=== PATIENT | female | born 1940 | race Caucasian/White ===

== ENCOUNTER 2019-01-13 14:37 | Outpatient (CLI) | payer MEDICARE ==
[2019-01-13 17:40] LABS: #Basophils 0.1 thou/uL (0.0-0.2); #Eosinphils 0.1 thou/uL (0.0-0.7); #Lymphocytes 2.9 thou/uL (1.20-3.40); #Monocytes 0.4 thou/uL (0.11-0.59); #Neutrophils 4.7 thou/uL (1.40-6.50); %Basophils 1.1 % (0.0-1.0); %Eosinophils 1.5 % (0.0-10.0); %Lymphocytes 35.3 % (21.0-51.0); %Monocytes 5.2 % (0.0-10.0); %Neutrophils 56.9 % (42.0-75.0); Hemoglobin 13.8 g/dL (12.0-16.0); Mean Corpuscular HGB CONC 31.5 g/dL (32.0-36.0); Mean Corpuscular Hemoglobin 29.7 pg (27.0-31.0); Mean Corpuscular Volume 94.2 fL (78.0-98.0); Mean Platelet Volume 8.9 fL (7.4-10.4); Platelet Count 170 thou/uL (130-400); RBC Distribution Width 13.1 % (11.5-14.5); Red Blood Cell (RBC) Count 4.65 mill/uL (4.20-5.40); White Blood Cell (WBC) Count 8.2 thou/uL (4.8-10.8)
[2019-01-13 18:04] LABS: ALT (SGPT) 15 U/L (8-55); AST (SGOT) 19 U/L (5-34); Albumin 4.1 g/dL (3.4-4.8); Alkaline Phosphatase 56 U/L (40-150); Anion Gap 12 mmol/L (10-20); BUN (Urea Nitrogen) 23 mg/dL (9.8-20.1); Bilirubin, Total 0.4 mg/dL (0.2-1.2); Calc. Creatinine Clearance 0 mL/min (70-130); Calcium 9.9 mg/dL (7.8-10.44); Carbon Dioxide 28 mmol/L (23-31); Chloride 102 mmol/L (98-107); Estimated GFR-MDRD 54; Globulin 2.7 g/dL (2.4-3.5); Glucose 87 mg/dL (83-110); Potassium 4.2 mmol/L (3.5-5.1); Protein, Total 6.8 g/dL (6.0-8.3); Sodium 138 mmol/L (136-145)
== END 2019-01-13 14:38 | disposition home or self-care (01) ==
LOC: LABBT 14:37
PROVIDERS: ATTEND Internal Medicine Cardiovascular Disease
DX: Z01.812 Encounter for preprocedural laboratory examination (principal); R94.39 Abnormal result of other cardiovascular function study
CPT/HCPCS: 80053; 85025

== ENCOUNTER 2019-01-15 05:48 | Day surgery (SDC) | payer MEDICARE ==
[2019-01-13 15:11] VITALS: BMI 31.3
[2019-01-15] MEDS ORDERED: Heparin 10,000 UNITS/1 ML VIAL ONE (06:26)
[2019-01-15] MEDS ORDERED: Lidocaine 1% (PF) 30 ML VIAL ONE (06:26)
[2019-01-15] MEDS ORDERED: Midazolam HCl 2 mg/2 ml Vial ONE (07:07)
[2019-01-15] MEDS ORDERED: Fentanyl 100 MCG/2 ML VIAL ONE (07:07)
[2019-01-15] MEDS ORDERED: Bivalirudin 250 MG VIAL ONE (07:26)
[2019-01-15] MEDS ORDERED: Iopamidol 370 76% 50 ML VIAL FS ONE (15:46)
[2019-01-15] MEDS ORDERED: Iopamidol 370 76% 100 ML VIAL ONE (15:46)
== END 2019-01-15 17:22 | disposition home or self-care (01) ==
LOC: CCL 05:48
PROVIDERS: ATTEND Internal Medicine Cardiovascular Disease
PROC: 4A023N7 Measurement of Cardiac Sampling and Pressure, Left Heart, Percutaneous Approach (ICD-10-PCS; principal; 2019-01-15)
PROC: B2001ZZ Plain Radiography of Single Coronary Artery using Low Osmolar Contrast (ICD-10-PCS; 2019-01-15)
DX: I25.10 Atherosclerotic heart disease of native coronary artery without angina pectoris (principal); I10 Essential (primary) hypertension; E78.00 Pure hypercholesterolemia, unspecified; E78.5 Hyperlipidemia, unspecified; E66.9 Obesity, unspecified; Z68.31 Body mass index [BMI] 31.0-31.9, adult; Z79.51 Long term (current) use of inhaled steroids; Z79.899 Other long term (current) drug therapy
CPT/HCPCS: 93458; 99152; 99153; C1769; C1887; J0153; J0583; J1644; J2001; J2250; J3010

== ENCOUNTER 2019-01-26 22:14 | Inpatient (IN) | payer MEDICARE ==
[~2019-01-26 22:14] MED LIST: ISOVUE-370 76%-LOCM 1 ML ONE
[2019-01-26 22:52] LABS: #Basophils 0.1 thou/uL (0.0-0.2); #Eosinphils 0.2 thou/uL (0.0-0.7); #Lymphocytes 3.3 thou/uL (1.20-3.40); #Monocytes 0.7 thou/uL (0.11-0.59); #Neutrophils 5.2 thou/uL (1.40-6.50); %Basophils 1.4 % (0.0-1.0); %Eosinophils 2.5 % (0.0-10.0); %Lymphocytes 34.3 % (21.0-51.0); %Monocytes 7.3 % (0.0-10.0); %Neutrophils 54.6 % (42.0-75.0); Mean Corpuscular HGB CONC 31.8 g/dL (32.0-36.0); Mean Corpuscular Hemoglobin 29.9 pg (27.0-31.0); Platelet Count 202 thou/uL (130-400); RBC Distribution Width 13.2 % (11.5-14.5); Red Blood Cell (RBC) Count 4.34 mill/uL (4.20-5.40); White Blood Cell (WBC) Count 9.6 thou/uL (4.8-10.8)
[2019-01-26 22:58] LABS: INR-International Normal Ratio 1.5; PTT 31.5 SEC (22.9-36.1); Prothrombin Time 17.8 SEC (12.0-14.7)
[2019-01-26 23:17] LABS: ALT (SGPT) 13 U/L (8-55); AST (SGOT) 17 U/L (5-34); Albumin 4.2 g/dL (3.4-4.8); Alkaline Phosphatase 57 U/L (40-150); Anion Gap 13 mmol/L (10-20); BUN (Urea Nitrogen) 33 mg/dL (9.8-20.1); Bilirubin, Total 0.5 mg/dL (0.2-1.2); Calc. Creatinine Clearance 0 mL/min (70-130); Calcium 10.2 mg/dL (7.8-10.44); Carbon Dioxide 29 mmol/L (23-31); Chloride 99 mmol/L (98-107); Estimated GFR-MDRD 36; Globulin 2.3 g/dL (2.4-3.5); Glucose 105 mg/dL (83-110); Potassium 4.4 mmol/L (3.5-5.1); Protein, Total 6.5 g/dL (6.0-8.3); Sodium 137 mmol/L (136-145)
--- NOTE | 2019-01-26 23:36 | CT ---
CTA chest with contrast: Multiple axial tomograms obtained through the chest following a pulmonary angiogram protocol with mul tiplanar reconstruction and 3-D postprocessing. INDICATIONS: Dyspnea and chest pain. Assess for pulmonary embolus. COMPARISON: None FINDINGS: There are pulmonary emboli identified in right lower lobe pulmonary arteries. Small emboli are also s een in left lower lobe pulmonary arteries. Thoracic aorta is unremarkable. No evidence of dissection. Mediastinum appears unremarkable. No adenopathy. Patchy atelectasis and/or infiltrate in the posterior left lung base. Lung moreira otherwise clear. There bilateral renal cystic lesions. Large cyst superior right kidney measures 6.0 cm. Kidneys are i ncompletely evaluated. Soft tissues of the thorax appear unremarkable. Osseous structures of the thorax appear unremarkable. IMPRESSION: Bilateral lower lobe pulmonary emboli. Findings relayed to Edie Molina
[2019-01-27 02:06] LABS: Troponin I Less than 0.010 ng/mL (< 0.028)
[2019-01-27] MEDS ORDERED: Acetaminophen 325 MG TAB PO PRN (03:05)
[2019-01-27] MEDS ORDERED: Ondansetron PF 4 MG/2 ML Vial IVP PRN (03:05)
[2019-01-27] MEDS ORDERED: Ondansetron ODT 4 MG TAB SL PRN (03:05)
[2019-01-27 03:37] VITALS: BMI 31.8
[2019-01-27 05:40] LABS: Troponin I Less than 0.010 ng/mL (< 0.028)
[2019-01-27] MEDS ORDERED: Apixaban 5 MG TAB PO SCH (09:00)
[2019-01-27] MEDS: Enoxaparin Sodium 100 MG/ML SYRINGE SC SCH ×2 (09:35→21:08)
[2019-01-27] MEDS ORDERED: Lisinopril/Hydrochlorothiazide 10 mg/12.5 mg Tablet PO SCH (11:45)
[2019-01-27 12:33] LABS: Anion Gap 13 mmol/L (10-20); BUN (Urea Nitrogen) 26 mg/dL (9.8-20.1); Calc. Creatinine Clearance 65 mL/min (70-130); Calcium 9.9 mg/dL (7.8-10.44); Carbon Dioxide 27 mmol/L (23-31); Chloride 101 mmol/L (98-107); Estimated GFR-MDRD 52; Glucose 97 mg/dL (83-110); Potassium 3.9 mmol/L (3.5-5.1); Sodium 137 mmol/L (136-145)
[2019-01-27] MEDS ORDERED: Atorvastatin Calcium 40 MG TAB PO SCH (21:00)
[2019-01-27] MEDS ORDERED: Gabapentin 300 MG CAP PO SCH (21:00)
--- NOTE | 2019-01-27 21:32 | HP ---
CHIEF COMPLAINT: Shortness of breath. HISTORY OF PRESENT ILLNESS: The patient is a 78-year-old female who initially presented to the hospital with complaints of shortness of breath and some chest pain. The patient stated that around January 15, she started having chest pain at which time she did have a stress test, which was abnormal. The patient underwent a cardiac catheterization with no intervention. The patient then was discharged home, however, she started having right groin pain and at this time, a right lower extremity Doppler was done, which indicated a significant amount of DVT. The patient was started on Eliquis that day. She is still currently supposed to be on 10 mg twice a day, however, started having some chest pain and worsening dull pain to her chest and a shortness of breath, which made her come into the hospital. The patient did have a CTA, which indicated bilateral lower segments of her lung pulmonary embolism. PAST MEDICAL HISTORY: She has a history of hypertension, sleep apnea. She also has a history of obesity. PAST SURGICAL HISTORY: She has had a thyroidectomy for goiter and hysterectomy. FAMILY HISTORY: No significant history of heart disease. ALLERGIES: SHE HAS NO KNOWN ALLERGIES. MEDICATIONS: She is on: 1. Levothyroxine. 2. Atorvastatin 20 mg daily. 3. She is on aspirin. 4. She is on hydrochlorothiazide. 5. She is on lisinopril. 6. She is on metoprolol. REVIEW OF SYSTEMS: All negative for the ones mentioned above in the HPI. PHYSICAL EXAMINATION: VITAL SIGNS: As of the following; temperature of 97.7, 69, 20, 92% on room air, 136/77. GENERAL: She is awake, alert, and oriented x3. Does not appear in distress. HEENT: Normocephalic, atraumatic. No lymphadenopathy noted. Pupils are equal reactive to light. CV: S1 and S2 present. No murmurs, rubs, or gallops. LUNGS: Clear to auscultation. No rhonchi or wheezes noted. ABDOMEN: Soft and nontender. Bowel sounds are present x2. EXTREMITIES: No edema. Pedal pulses present x2. ABDOMEN: Her right groin, she does have a hematoma. There was no erythema noted. NEUROVASCULAR: Has no focal deficits noted. SKIN: Besides the hematoma on the right groin, she has no other skin breakdown. LABORATORY RESULTS: As of the following; WBCs of 9.6, hemoglobin 13.0, hematocrit 40.8, platelets of 202. Coagulation: INR 1.5. Chemistry: Sodium 137, potassium of 4.4, BUN of 33, creatinine 1.42. Troponin x3 are negative. BNP is 15. As I mentioned, she did have a CTA, which indicated bilateral lower lobe pulmonary embolism. ASSESSMENT AND PLAN: The patient is a very pleasant 78-year-old female who presents to the hospital with complaints of worsening shortness of breath. 1. Acute pulmonary embolism. It is a possibility that the patient probably had a pulmonary embolism before versus embolism from her DVT to her lungs. I do not believe she failed Eliquis therapy since she is on a therapeutic dose of 10 mg twice a day and she is on day #5 I believe. I believe that this is probably just translocation of her blood clots or emboli from her lower extremity to her lungs. Currently, she is on Lovenox. I did discuss this with a straightedge man who recommended to continue the patient on Eliquis from tomorrow. 2. I will also order an echocardiogram even though her troponins x3 were negative. I will get records from Dr. Yuan's office for her lower extremity venous ultrasound to further evaluate it. 3. Hypertension. We will continue home medications. 4. Hypothyroidism. We will continue her home medications. 5. Deep venous thrombosis prophylaxis. The patient is already on therapeutic dose of Lovenox. Job ID: [id number]
--- NOTE | 2019-01-27 22:42 | CON ---
DATE OF CONSULTATION: REASON FOR CONSULT: DVT and PE. HISTORY OF PRESENT ILLNESS: Ms. Phillips is a pleasant 78-year-old female who underwent an outpatient heart catheterization on July 18. She had a large hematoma in her right groin after the procedure. She was discharged home and continued to have burning in that area. She was seen by Dr. Yuan on January 22. Ultrasound showed a right femoral common vein DVT. She was started on Eliquis 10 mg b.i.d. that day and has been taking it over the last 5 days. She states she had intermittent chest pain since the heart catheterization, which progressively worsened and she had some shortness of breath, so she presented to the emergency room yesterday for evaluation. She underwent a CT angio, which showed small bilateral pulmonary emboli. She was started on therapeutic Lovenox and admitted for further evaluation. The patient has no history of blood clots. No family history of blood clotting. No history of smoking. She does use an estradiol ring. No chest pain or shortness of breath at this time. PAST MEDICAL HISTORY: 1. Hypothyroidism. 2. Hypertension. 3. Venous insufficiency. 4. Spinal stenosis. 5. High cholesterol. PAST SURGICAL HISTORY: 1. Corneal implants. 2. Tonsillectomy. 3. Total hysterectomy. 4. Thyroidectomy. ALLERGIES: NO KNOWN DRUG ALLERGIES. HOME MEDICATIONS: 1. Eliquis 10 mg b.i.d. 2. Lipitor 40 mg daily. 3. B12 daily. 4. Estradiol 2 mg vaginal ring every 90 days. 5. Flonase. 6. Gabapentin. 7. Synthroid. 8. Lisinopril/hydrochlorothiazide. 9. Metoprolol. 10. CoQ10. FAMILY HISTORY: Brother had prostate cancer. No history of clotting. SOCIAL HISTORY: , has 2 children. Lives with her . No alcohol, tobacco, or illicit drug use. REVIEW OF SYSTEMS: A 10-point review of systems is negative except for noted in HPI. PHYSICAL EXAMINATION: VITAL SIGNS: Temperature 97.7, pulse 69, respiratory rate 20, blood pressure is 136/77, 93% on room air. GENERAL: Well-developed, well-nourished female, in no acute distress. HEENT: Normocephalic, atraumatic. Pupils are equal and reactive to light. NECK: Supple. CV: Regular rate and rhythm. LUNGS: Clear. ABDOMEN: Soft and nontender. Bowel sounds are positive. EXTREMITIES: No clubbing, cyanosis, or edema. SKIN: No rash. HEMATOLOGICAL: She has multiple resolving bruises in her right groin and right upper thigh. NEUROLOGICAL: Nonfocal. PSYCHIATRIC: She is alert, oriented and appropriate. PERTINENT LABS AND X-RAYS: Current WBCs are 9.6, hemoglobin 13.0, hematocrit 40.8, platelet count 202,000, 54% neutrophils, 34% lymphocytes. PT is 17.8, INR is 1.5, and PTT is 31.5. Sodium is 137, potassium 3.9, chloride 101, CO2 is 27, BUN is 26, creatinine 1.02, calcium 9.9, bilirubin is 0.5, AST 17, ALT is 13, alkaline phosphatase is 59. Troponin is negative. Serum total protein 6.5, albumin 4.2, globulin 2.3. Radiology per HPI. ASSESSMENT: Deep venous thrombosis and pulmonary embolism, status post cardiac catheterization. DISCUSSION: The patient has only taken Eliquis for 5 days prior to this admission. It is most likely that her pulmonary embolism happened at the time of catheterization or shortly there after. She states she has had intermittent chest pain since that time. She has received 3 doses of Lovenox. I would resume Eliquis in the morning as this is not a failure, simply not long enough time frame. I would continue the 10 mg b.i.d. to complete her a total of 1 week, then go to her 5 mg b.i.d. as prescribed. We discussed that she will need minimal 3 months of anticoagulation and possible 6 months. This can be managed by Dr. Yuan or PCP. We would recommend removing her estradiol ring as it certainly can increase her risk for blood clots in the future. Case has been discussed with Dr. Shook, Dr. Vizcaino and Dr. Villagomez. Thank you for the consult. We will follow along. Job ID: [id number]
[2019-01-28] MEDS ORDERED: Acetaminophen 325 MG TAB PO PRN (02:28)
[2019-01-28] MEDS ORDERED: Levothyroxine Sodium 25 MCG TAB PO SCH (06:00)
[2019-01-28] MEDS ORDERED: Levothyroxine Sodium 112 MCG TAB PO SCH (06:00)
[2019-01-28] MEDS: Enoxaparin Sodium 100 MG/ML SYRINGE SC SCH (08:00)
[2019-01-28] MEDS ORDERED: Lisinopril/Hydrochlorothiazide 10 mg/12.5 mg Tablet PO SCH (09:00)
[2019-01-28] MEDS ORDERED: Polyethylene Glycol 3350 17 GM Packet PO SCH (09:00)
[2019-01-28 15:33] VITALS: TEMP 97.9
[2019-01-28 15:35] VITALS: BP 139/75
--- NOTE | 2019-01-29 06:07 | DIS ---
DATE OF ADMISSION: 01/27/2019 DATE OF DISCHARGE: 01/28/2019 DISCHARGE DIAGNOSES: As of the following; 1. Bilateral pulmonary embolisms. 2. New onset lower extremity deep venous thrombosis. 3. Hypertension. 4. Hypothyroidism. HOSPITAL COURSE: The patient is a very pleasant 78-year-old female, who was recently diagnosed with DVT on her right groin after cardiac cath and was put on Eliquis. She came in with worsening shortness of breath, was found to be little bit hypoxic. At this time, an echocardiogram was ordered. Her troponins x3 were negative. She was seen by Hematology for possible concerns of failed Eliquis therapy, however, that was not the case. The patient was on appropriate therapy, 10 mg twice a day and was taking that for a total of seven days, which would end on 01/30. She was initially put on Lovenox. Her symptoms continued to improve. She was discharged home back with Eliquis 10 mg twice a day till Saturday and then she will go on 5 mg twice a day. It was a question that if the patient possibly had a PE before versus had some emboli from her right DVT going up to her lung. The patient did have a cardiac cath due to abnormal stress test, and heart catheterization did not indicate any severe narrowing and therefore, no intervention was done. The patient felt well. She walked around without any shortness of breath. She will be discharged to home. She will follow up with her primary care and I have instructed her on how to use her Eliquis. I have also instructed her on the side effects of Eliquis. MEDICATIONS: Her home medications will be, 1. Eliquis 10 mg twice a day until Saturday. After that, she is going to be on 5 mg twice a day. 2. Gabapentin 300 mg at bedtime. I have advised her not to take any kind of Aleve. 3. She is going to be on Synthroid 137 mcg daily. 4. Metoprolol 25 mg daily. 5. Lisinopril-hydrochlorothiazide 1 p.o. daily. 6. Atorvastatin 40 mg at bedtime. 7. She is on estradiol ring. PHYSICAL EXAMINATION: VITAL SIGNS: As of the following; temperature of 97.9, 64, 20, 94% on room air, 139/75. GENERAL: She is awake, alert, and oriented x3. Does not appear in any distress. CV: S1, S2 present. No murmurs, rubs, or gallops. ABDOMEN: Soft and nontender. Bowel sounds are present x2. EXTREMITIES: No edema. Pedal pulses are present x2. Again, she will be discharged to home. Follow up with primary care. Job ID: [id number]
== END 2019-01-28 17:24 | disposition home or self-care (01) | DRG 176 ==
LOC: ERS 22:14 → OBSVTOIN 01-27 01:31 → 2SE 01-27 01:31
PROVIDERS: ADMIT Hospitalist; ATTEND Hospitalist
DX: I26.99 Other pulmonary embolism without acute cor pulmonale (principal); I82.411 Acute embolism and thrombosis of right femoral vein; G47.33 Obstructive sleep apnea (adult) (pediatric); I10 Essential (primary) hypertension; E66.9 Obesity, unspecified; E78.00 Pure hypercholesterolemia, unspecified; Z90.710 Acquired absence of both cervix and uterus; Z79.899 Other long term (current) drug therapy; Z79.01 Long term (current) use of anticoagulants; Z68.31 Body mass index [BMI] 31.0-31.9, adult
CPT/HCPCS: 36415; 71275; 80048; 80053; 83880; 84484; 85025; 85610; 85730; 93005; 93306; 94760; J1650; Q9966

== ENCOUNTER 2019-05-25 12:20 | Emergency (ER) | payer MEDICARE ==
[2019-05-25 12:37] LABS: Bilirubin Negative (Negative); Blood, Urine Large (Negative); Clarity Cloudy (Clear); Glucose, Urine (Dipstick) Negative (Negative); Nitrite Negative (Negative); Protein, Urine (Dipstick) 100 mg/dL (Neg-Trace); Urobilinogen 0.2 mg/dL (Less than 2)
[2019-05-25 12:39] LABS: Leukocyte Unable to Interpret (Negative)
[2019-05-25 12:44] LABS: Bacteria/HPF Rare-Few HPF (None Seen); Oval Fat Bodies/HPF Rare HPF (None Seen); RBC/HPF Greater than 50 HPF (0-3); Squamous Epithelial 0-3 HPF (0-3); WBC/HPF 21-50 HPF (0-3)
[2019-05-25 12:45] LABS: Renal Epithelial 0-3 HPF (None Seen)
[2019-05-25 13:01] LABS: #Basophils 0.1 thou/uL (0.0-0.2); #Eosinphils 0.2 thou/uL (0.0-0.7); #Lymphocytes 2.2 thou/uL (1.20-3.40); #Monocytes 0.6 thou/uL (0.11-0.59); #Neutrophils 10.4 thou/uL (1.40-6.50); %Basophils 0.8 % (0.0-1.0); %Eosinophils 1.2 % (0.0-10.0); %Lymphocytes 16.3 % (21.0-51.0); %Monocytes 4.7 % (0.0-10.0); %Neutrophils 76.9 % (42.0-75.0); Hemoglobin 12.8 g/dL (12.0-16.0); Mean Corpuscular HGB CONC 31.6 g/dL (32.0-36.0); Mean Corpuscular Hemoglobin 30.2 pg (27.0-31.0); Mean Corpuscular Volume 95.7 fL (78.0-98.0); Mean Platelet Volume 8.2 fL (7.4-10.4); Platelet Count 176 thou/uL (130-400); RBC Distribution Width 13.8 % (11.5-14.5); Red Blood Cell (RBC) Count 4.23 mill/uL (4.20-5.40); White Blood Cell (WBC) Count 13.6 thou/uL (4.8-10.8)
[2019-05-25 13:13] LABS: ALT (SGPT) 22 U/L (8-55); AST (SGOT) 21 U/L (5-34); Albumin 4.3 g/dL (3.4-4.8); Alkaline Phosphatase 58 U/L (40-110); Anion Gap 16 mmol/L (10-20); BUN (Urea Nitrogen) 23 mg/dL (9.8-20.1); Bilirubin, Total 0.7 mg/dL (0.2-1.2); Calc. Creatinine Clearance 0 mL/min (70-130); Carbon Dioxide 27 mmol/L (23-31); Chloride 102 mmol/L (98-107); Estimated GFR-MDRD 55; Globulin 2.6 g/dL (2.4-3.5); Glucose 104 mg/dL (83-110); Potassium 4.3 mmol/L (3.5-5.1); Protein, Total 6.9 g/dL (6.0-8.3); Sodium 141 mmol/L (136-145)
--- NOTE | 2019-05-25 13:19 | CT ---
CT of abdomen and pelvis: 05/25/2019 COMPARISON: None HISTORY: Hematuria, dysuria, mild suprapubic pain TECHNIQUE: Axial CT imaging at 5 mm intervals from lung bases through pubic symphysis without contras t. Coronal reformatted imaging obtained. FINDINGS: Lack of contrast media limits assessment of the viscera, bowel, vascular structures, and fo r lymphadenopathy. Mild hazy increased density in the left base abutting the left hemidiaphragm. Small sliding-type hiat al hernia. No free intraperitoneal air or fluid. Subtle increased density within the region of the gallbladder neck may signify stones and/or sludge. No calcifications are identified in the region of the gallbladder however. Liver, spleen, pancreas, and adrenal glands appear grossly unremarkable. There is a small exophytic hypodensity emanating from the mid pole of the left kidney measuring 1.1 c m, difficult to fully characterize given small size. A similar small exophytic lesion emanating from the lower pole of the left kidney laterally measuring approximately 9-10 mm. Small cysts are fav ored. Confirmation with follow-up renal ultrasound suggested. No nephrolithiasis or evidence of obstructive uropathy on either side. There is a 6 cm exophytic cyst emanating from the upper pole of the right kidney. No evidence for bowel inflammatory change or bowel obstruction. Appendix is visualized and appears un remarkable. Osseous structures demonstrate multilevel lower lumbar spine degenerative change which includes bilateral L3-4, L4-5, and L5-S1 facet hypertrophy as well as degenerative endplate change wi th disc space narrowing and vacuum disc formation at the lumbosacral junction. No acute fracture. IMPRESSION: No evidence for nephrolithiasis or obstructive uropathy. Recommend follow-up renal ultras ound to assess probable bilateral renal cysts. Mild increased density within the gallbladder as detailed above.
== END 2019-05-25 13:40 | disposition home or self-care (01) ==
LOC: SCSER 12:20
DX: R82.71 Bacteriuria (principal); R31.0 Gross hematuria; Z86.711 Personal history of pulmonary embolism
CPT/HCPCS: 36415; 74176; 80053; 81003; 81015; 85025

== ENCOUNTER 2022-06-21 10:20 | Outpatient (CLI) | payer MEDICARE | END 2022-06-21 10:21 | disposition home or self-care (01) | LOC: TBSIIMAG 10:20 | PROVIDERS: ATTEND Anesthesiology Pain Medicine | DX: M47.26 Other spondylosis with radiculopathy, lumbar region (principal); M48.061 Spinal stenosis, lumbar region without neurogenic claudication; M89.9 Disorder of bone, unspecified; M51.16 Intervertebral disc disorders with radiculopathy, lumbar region; M51.37 Other intervertebral disc degeneration, lumbosacral region | CPT/HCPCS: 72148 ==

== ENCOUNTER 2022-08-02 05:32 | Day surgery (SDC) | payer MEDICARE ==
[2022-08-01 12:10] VITALS: BMI 31.3
[2022-08-02] MEDS ORDERED: Lidocaine 1% (PF) 30 ML VIAL ONE (06:26)
[2022-08-02] MEDS ORDERED: Adenosine 6 MG/2 ML VIAL ONE (06:26)
[2022-08-02] MEDS ORDERED: Nitroglycerin 100MG/250ML BOT 0 ML ONE (06:26)
[2022-08-02] MEDS ORDERED: Heparin 10,000 UNITS/ 10 ML VIAL ONE (06:26)
[2022-08-02 06:43] LABS: #Basophils 0.1 thou/uL (0.0-0.2); #Eosinphils 0.1 thou/uL (0.0-0.7); #Lymphocytes 2.1 thou/uL (1.20-3.40); #Monocytes 0.6 thou/uL (0.11-0.59); #Neutrophils 4.9 thou/uL (1.40-6.50); %Basophils 0.8 % (0.0-1.0); %Eosinophils 1.8 % (0.0-10.0); %Lymphocytes 26.8 % (21.0-51.0); %Monocytes 7.2 % (0.0-10.0); %Neutrophils 63.4 % (42.0-75.0); Hemoglobin 12.7 g/dL (12.0-16.0); Mean Corpuscular HGB CONC 33.3 g/dL (32.0-36.0); Mean Corpuscular Hemoglobin 33.5 pg (27.0-31.0); Mean Platelet Volume 7.9 fL (7.4-10.4); Platelet Count 197 10x3/uL (130-400); RBC Distribution Width 14.6 % (11.5-14.5); White Blood Cell (WBC) Count 7.7 10x3/uL (4.8-10.8)
[2022-08-02] MEDS ORDERED: FENTANYL 50 MCG/ML 1 ML VIAL ONE (06:59)
[2022-08-02] MEDS ORDERED: Midazolam HCl 2 mg/2 ml Vial ONE (07:00)
[2022-08-02 07:05] LABS: ALT (SGPT) 18 U/L (8-55); AST (SGOT) 17 U/L (5-34); Albumin 4.3 g/dL (3.4-4.8); Alkaline Phosphatase 44 U/L (40-110); Anion Gap 15 mmol/L (10-20); BUN (Urea Nitrogen) 21 mg/dL (9.8-20.1); Bilirubin, Total 0.8 mg/dL (0.2-1.2); Calc. Creatinine Clearance 55 mL/min (70-130); Calcium 9.8 mg/dL (7.8-10.44); Carbon Dioxide 28 mmol/L (23-31); Chloride 97 mmol/L (98-107); Estimated GFR 50; Globulin 2.5 g/dL (2.4-3.5); Glucose 108 mg/dL (83-110); Potassium 3.8 mmol/L (3.5-5.1); Protein, Total 6.8 g/dL (5.8-8.1); Sodium 136 mmol/L (136-145)
== END 2022-08-02 14:22 | disposition home or self-care (01) ==
LOC: CCL 05:32
PROVIDERS: ATTEND Internal Medicine Cardiovascular Disease
PROC: 4A023N7 Measurement of Cardiac Sampling and Pressure, Left Heart, Percutaneous Approach (ICD-10-PCS; principal; 2022-08-02)
PROC: B2111ZZ Fluoroscopy of Multiple Coronary Arteries using Low Osmolar Contrast (ICD-10-PCS; 2022-08-02)
DX: I25.10 Atherosclerotic heart disease of native coronary artery without angina pectoris (principal); I10 Essential (primary) hypertension; E07.9 Disorder of thyroid, unspecified; E78.00 Pure hypercholesterolemia, unspecified; M48.061 Spinal stenosis, lumbar region without neurogenic claudication; I87.2 Venous insufficiency (chronic) (peripheral); G47.33 Obstructive sleep apnea (adult) (pediatric); Z86.711 Personal history of pulmonary embolism; Z86.718 Personal history of other venous thrombosis and embolism; Z79.01 Long term (current) use of anticoagulants; Z79.82 Long term (current) use of aspirin; Z79.890 Hormone replacement therapy; Z79.899 Other long term (current) drug therapy
CPT/HCPCS: 36415; 80053; 85025; 85347; 93005; 93010; 93458; 99152; 99153; C1769; J0153; J1644; J2001; J2250; J3010

== ENCOUNTER 2022-08-30 10:07 | Outpatient (CLI) | payer MEDICARE ==
[2022-08-30 11:20] LABS: Hemoglobin 12.1 g/dL (12.0-15.5); Mean Corpuscular HGB CONC 31.3 g/dL (32.0-36.0); Mean Corpuscular Hemoglobin 30.8 pg (27.0-33.0); Mean Corpuscular Volume 98.5 fl (81.6-98.3); Mean Platelet Volume 10.2 fl (7.4-10.4); Platelet Count 206 10x3/uL (150-450); Red Blood Cell (RBC) Count 3.93 10x6/uL (3.90-5.03); White Blood Cell (WBC) Count 7.4 10x3/uL (3.5-10.5)
[2022-08-30 11:21] LABS: PTT 25.1 sec (22.0-33.0); Prothrombin Time 10.9 sec (9.5-12.1)
[2022-08-30 11:38] LABS: Anion Gap 16 mmol/L (10-20); BUN (Urea Nitrogen) 21 mg/dL (9.8-20.1); Calc. Creatinine Clearance 0 mL/min (70-130); Calcium 9.6 mg/dL (7.8-10.44); Carbon Dioxide 25 mmol/L (23-31); Chloride 99 mmol/L (98-107); Estimated GFR 53; Glucose 99 mg/dL (83-110); Potassium 4.2 mmol/L (3.5-5.1); Sodium 136 mmol/L (136-145)
== END 2022-08-30 10:08 | disposition home or self-care (01) ==
LOC: LABBT 10:07
PROVIDERS: ATTEND Surgery
DX: Z01.812 Encounter for preprocedural laboratory examination (principal); M48.062 Spinal stenosis, lumbar region with neurogenic claudication; M71.38 Other bursal cyst, other site
CPT/HCPCS: 80048; 85027; 85610; 85730

== ENCOUNTER 2022-09-04 08:00 | Inpatient (IN) | payer MEDICARE ==
[2022-08-31 10:41] VITALS: BMI 32.2
[2022-09-04 09:18] LABS: SARS-CoV-2 NAA Rapid Test Not Detected (NotDetected)
[2022-09-04] MEDS ORDERED: Sodium Chloride 0.9% 100 ML ONE (09:29)
[2022-09-04] MEDS ORDERED: CEFAZOLIN 2 GM VIAL ONE (09:29)
[2022-09-04] MEDS ORDERED: Vancomycin 1 GM VIAL ONE (09:45)
[2022-09-04] MEDS ORDERED: Thrombin 5000 UNITS/5 ML VIAL ONE ×2 (09:45→11:49)
[2022-09-04] MEDS ORDERED: fentaNYL PF 100 MCG/2 ML SYRINGE ONE ×2 (09:46→12:27)
[2022-09-04] MEDS ORDERED: Ondansetron PF 4 MG/2 ML Vial ONE (10:02)
[2022-09-04] MEDS ORDERED: Lidocaine 1% PF 5 ML VIAL ONE (10:02)
[2022-09-04] MEDS ORDERED: ePHEDrine 50 MG/ML VIAL ONE (10:02)
[2022-09-04] MEDS ORDERED: PROPOFOL 200 MG/20 ML VIAL ONE (10:02)
[2022-09-04] MEDS ORDERED: Rocuronium Bromide 10 MG/ML (10ML VIAL) ONE (10:02)
[2022-09-04] MEDS ORDERED: Glycopyrrolate 0.2 MG/ML 5 ML SYRINGE ONE (10:02)
[2022-09-04] MEDS ORDERED: PHENYLEPHRINE-NS 100 MCG/ML 10 ML SYRINGE ONE (10:02)
[2022-09-04] MEDS ORDERED: Dexamethasone 20 MG/5 ML VIAL ONE (10:02)
[2022-09-04] MEDS ORDERED: Ketorolac Tromethamine 30 MG/ML VIAL ONE (10:02)
[2022-09-04] MEDS ORDERED: NEOSTIGMINE 3 MG/3 ML SYR 3 MG/3 ML SYRINGE ONE (10:02)
[2022-09-04] MEDS ORDERED: Morphine 2 MG/ML VIAL SLOW IVP PRN (12:56)
[2022-09-04] MEDS ORDERED: Ondansetron PF 4 MG/2 ML Vial IVP PRN (12:56)
[2022-09-04] MEDS ORDERED: Acetaminophen/Codeine 30-300mg Tablet PO PRN (12:56)
[2022-09-04] MEDS ORDERED: diphenhydrAMINE 25 MG CAP PO PRN (12:56)
[2022-09-04] MEDS ORDERED: hydrALAZINE 20 MG/ML VIAL SLOW IVP PRN (13:00)
[2022-09-04] MEDS ORDERED: Fentanyl 100 MCG/2 ML VIAL ONE ×2 (13:08→14:07)
[2022-09-04] MEDS ORDERED: Loratadine 10 MG TAB PO PRN (13:31)
[2022-09-04] MEDS ORDERED: Fluticasone Propionate Nasal Spray 16 gm Bottle NASAL PRN (13:36)
[2022-09-04] MEDS ORDERED: tiZANidine HCl 4 MG TAB ONE (14:31)
[2022-09-04] MEDS: tiZANidine HCl 4 MG TAB PO PRN (14:32)
[2022-09-04] MEDS ORDERED: HYDROmorphone 0.5 MG/0.5 ML SYRINGE ONE (15:05)
[2022-09-04] MEDS: Sodium Chloride 0.9% 1,000 ML IV SCH (17:47)
[2022-09-04] MEDS: CEFAZOLIN 2 GM in Sodium Chloride 0.9% 100 ML IVPB SCH (17:47)
[2022-09-04] MEDS: HYDROcodone/Acetaminophen 7.5/325 mg Tablet PO PRN (17:59)
[2022-09-04] MEDS: Gabapentin 300 MG CAP PO SCH (22:02)
[2022-09-04] MEDS: Atorvastatin Calcium 40 MG TAB PO SCH (22:04)
[2022-09-05] MEDS: tiZANidine HCl 4 MG TAB PO PRN (00:25)
[2022-09-05] MEDS: CEFAZOLIN 2 GM in Sodium Chloride 0.9% 100 ML IVPB SCH ×3 (01:55→23:07)
[2022-09-05] MEDS: HYDROcodone/Acetaminophen 7.5/325 mg Tablet PO PRN (03:07)
[2022-09-05 05:24] LABS: #Lymphocytes 1.1 thou/uL (1.20-3.40); #Monocytes 0.4 thou/uL (0.11-0.59); %Basophils 0.1 % (0.0-1.0); %Eosinophils 0.1 % (0.0-10.0); %Lymphocytes 11.5 % (21.0-51.0); %Monocytes 4.7 % (0.0-10.0); %Neutrophils 83.6 % (42.0-75.0); Hemoglobin 9.3 g/dL (12.0-16.0); Mean Corpuscular HGB CONC 32.1 g/dL (32.0-36.0); Mean Platelet Volume 7.9 fL (7.4-10.4); Platelet Count 163 10x3/uL (130-400); RBC Distribution Width 14.1 % (11.5-14.5); Red Blood Cell (RBC) Count 2.82 mill/uL (4.20-5.40); White Blood Cell (WBC) Count 9.5 10x3/uL (4.8-10.8)
[2022-09-05] MEDS: Levothyroxine Sodium 125 MCG TAB PO SCH (05:44)
[2022-09-05 05:48] LABS: Anion Gap 11 mmol/L (10-20); BUN (Urea Nitrogen) 20 mg/dL (9.8-20.1); Calc. Creatinine Clearance 68 mL/min (70-130); Calcium 8.1 mg/dL (7.8-10.44); Carbon Dioxide 25 mmol/L (23-31); Chloride 105 mmol/L (98-107); Estimated GFR 62; Glucose 126 mg/dL (83-110); Potassium 4.8 mmol/L (3.5-5.1); Sodium 136 mmol/L (136-145)
[2022-09-05] MEDS: Sodium Chloride 0.9% 1,000 ML IV SCH ×2 (05:49→12:25)
[2022-09-05] MEDS: CO Q-10 CAPSULE 100 MG PO SCH (08:06)
[2022-09-05] MEDS: Gabapentin 300 MG CAP PO SCH ×2 (08:07→20:33)
[2022-09-05] MEDS: Calcium Carbonate 600 MG + Vit D TAB PO SCH (08:07)
[2022-09-05] MEDS: Cholecalciferol 1,000 UNITS (25 MCG) TAB PO SCH (08:07)
[2022-09-05] MEDS: Cyanocobalamin (Vitamin B-12) 1,000 MCG TAB PO SCH (08:07)
[2022-09-05] MEDS: Polyethylene Glycol 3350 17 GM Packet PO PRN (09:55)
[2022-09-05] MEDS: traMADol HCl 50 MG TAB PO PRN ×2 (09:56→20:32)
[2022-09-05] MEDS: Lisinopril/Hydrochlorothiazide 10 mg/12.5 mg Tablet PO SCH (11:30)
[2022-09-05] MEDS: Atorvastatin Calcium 40 MG TAB PO SCH (20:33)
[2022-09-05] MEDS ORDERED: [UNRECOGNIZED DRUG - OTHER] PR SCH (23:30)
[2022-09-06] MEDS: Sodium Chloride 0.9% 1,000 ML IV SCH ×2 (04:06→13:04)
[2022-09-06] MEDS: Levothyroxine Sodium 125 MCG TAB PO SCH (05:13)
[2022-09-06] MEDS: CEFAZOLIN 2 GM in Sodium Chloride 0.9% 100 ML IVPB SCH ×3 (05:13→21:25)
[2022-09-06] MEDS: Lisinopril/Hydrochlorothiazide 10 mg/12.5 mg Tablet PO SCH (10:12)
[2022-09-06] MEDS: Gabapentin 300 MG CAP PO SCH ×2 (10:13→20:53)
[2022-09-06] MEDS: Cholecalciferol 1,000 UNITS (25 MCG) TAB PO SCH (10:17)
[2022-09-06] MEDS: Calcium Carbonate 600 MG + Vit D TAB PO SCH (10:18)
[2022-09-06] MEDS: Cyanocobalamin (Vitamin B-12) 1,000 MCG TAB PO SCH (10:18)
[2022-09-06] MEDS: Polyethylene Glycol 3350 17 GM Packet PO PRN (10:20)
[2022-09-06] MEDS: traMADol HCl 50 MG TAB PO PRN ×2 (10:25→22:34)
[2022-09-06] MEDS: CO Q-10 CAPSULE 100 MG PO SCH (12:41)
[2022-09-06] MEDS: tiZANidine HCl 4 MG TAB PO PRN (12:59)
[2022-09-06] MEDS: Acetaminophen 325 MG TAB PO PRN (20:52)
[2022-09-06] MEDS: Atorvastatin Calcium 40 MG TAB PO SCH (20:53)
[2022-09-06] MEDS ORDERED: CO Q-10 CAPSULE 100 MG PO SCH (21:00)
[2022-09-06] MEDS ORDERED: Milk Of Magnesia 30 ML UDCUP PO SCH (21:15)
[2022-09-07] MEDS: CEFAZOLIN 2 GM in Sodium Chloride 0.9% 100 ML IVPB SCH (05:29)
[2022-09-07] MEDS: Levothyroxine Sodium 125 MCG TAB PO SCH (05:29)
[2022-09-07] MEDS: Sodium Chloride 0.9% 1,000 ML IV SCH (08:46)
[2022-09-07] MEDS: Gabapentin 300 MG CAP PO SCH (08:46)
[2022-09-07] MEDS: Cyanocobalamin (Vitamin B-12) 1,000 MCG TAB PO SCH (08:47)
[2022-09-07] MEDS: Lisinopril/Hydrochlorothiazide 10 mg/12.5 mg Tablet PO SCH (08:47)
[2022-09-07] MEDS: Calcium Carbonate 600 MG + Vit D TAB PO SCH (08:47)
[2022-09-07] MEDS: Cholecalciferol 1,000 UNITS (25 MCG) TAB PO SCH (08:48)
[2022-09-07] MEDS: HYDROcodone/Acetaminophen 7.5/325 mg Tablet PO PRN (08:54)
[2022-09-07] MEDS ORDERED: CO Q-10 CAPSULE 100 MG PO SCH (09:00)
[2022-09-07] MEDS ORDERED: Bisacodyl 5 MG TAB PO PRN (09:35)
[2022-09-07] MEDS ORDERED: Polyethylene Glycol 3350 17 GM Packet PO SCH (09:45)
[2022-09-07 18:07] VITALS: BP 138/66; TEMP 98.3
[2022-09-07] MEDS: Acetaminophen 325 MG TAB PO PRN (19:02)
[2022-09-08] MEDS ORDERED: Polyethylene Glycol 3350 17 GM Packet PO SCH (09:00)
== END 2022-09-07 19:57 | DRG 517 ==
LOC: SDC 08:00 → MSONC 12:56 → OBSVTOIN 09-05 09:43
PROVIDERS: ADMIT Surgery; ATTEND Surgery
PROC: 01NB0ZZ Release Lumbar Nerve, Open Approach (ICD-10-PCS; principal; 2022-09-04)
PROC: 5A09457 Assistance with Respiratory Ventilation, 24-96 Consecutive Hours, Continuous Positive Airway Pressure (ICD-10-PCS; 2022-09-04)
DX: M48.061 Spinal stenosis, lumbar region without neurogenic claudication (principal); M71.38 Other bursal cyst, other site; M54.16 Radiculopathy, lumbar region; K59.00 Constipation, unspecified; Z96.651 Presence of right artificial knee joint; Z90.710 Acquired absence of both cervix and uterus; Z98.890 Other specified postprocedural states; Z98.49 Cataract extraction status, unspecified eye; Z20.822 Contact with and (suspected) exposure to COVID-19
CPT/HCPCS: 36415; 80048; 85025; 93970; 96374; 96376; G0378; J1100; J1170; J1885; J2405; J2704; J3010; J3370; J3490; J7050; U0002

== ENCOUNTER 2022-10-08 13:38 | Inpatient (IN) | payer MEDICARE ==
[2022-10-08 14:32] LABS: #Basophils 0.1 thou/uL (0.0-0.2); #Eosinphils 0.2 thou/uL (0.0-0.7); #Lymphocytes 2.1 thou/uL (1.20-3.40); #Monocytes 0.6 thou/uL (0.11-0.59); %Basophils 0.7 % (0.0-1.0); %Eosinophils 2.3 % (0.0-10.0); %Lymphocytes 25.9 % (21.0-51.0); %Neutrophils 63.1 % (42.0-75.0); Hemoglobin 10.8 g/dL (12.0-16.0); Mean Corpuscular HGB CONC 32.4 g/dL (32.0-36.0); Mean Corpuscular Hemoglobin 32.2 pg (27.0-31.0); Mean Corpuscular Volume 99.2 fl (78.0-98.0); Mean Platelet Volume 7.2 fL (7.4-10.4); Platelet Count 208 10x3/uL (130-400); RBC Distribution Width 14.6 % (11.5-14.5); Red Blood Cell (RBC) Count 3.35 mill/uL (4.20-5.40); White Blood Cell (WBC) Count 7.9 10x3/uL (4.8-10.8)
[2022-10-08 14:47] LABS: PTT 25.5 sec (22.9-36.1)
[2022-10-08 14:53] LABS: ALT (SGPT) 12 U/L (8-55); AST (SGOT) 17 U/L (5-34); Alkaline Phosphatase 54 U/L (40-110); Anion Gap 12 mmol/L (10-20); BUN (Urea Nitrogen) 32 mg/dL (9.8-20.1); Bilirubin, Total 0.3 mg/dL (0.2-1.2); Calc. Creatinine Clearance 0 mL/min (70-130); Calcium 9.9 mg/dL (7.8-10.44); Carbon Dioxide 27 mmol/L (23-31); Chloride 102 mmol/L (98-107); Estimated GFR 33; Globulin 2.4 g/dL (2.4-3.5); Glucose 105 mg/dL (83-110); Potassium 4.3 mmol/L (3.5-5.1); Protein, Total 6.4 g/dL (5.8-8.1); Sodium 137 mmol/L (136-145)
[2022-10-08] MEDS ORDERED: Ondansetron PF 4 MG/2 ML Vial IVP PRN (16:13)
[2022-10-08] MEDS ORDERED: diphenhydrAMINE 25 MG CAP PO PRN (16:13)
[2022-10-08] MEDS ORDERED: traMADol HCl 50 MG TAB PO PRN ×2 (16:13)
[2022-10-08] MEDS ORDERED: HYDROcodone/Acetaminophen 7.5/325 mg Tablet PO PRN (16:13)
[2022-10-08 21:35] VITALS: BMI 31.8
[2022-10-08] MEDS: Sodium Chloride 0.9% 1,000 ML IV SCH (21:58)
[2022-10-09] MEDS ORDERED: Aspirin 81 mg Enteric Coated Tablet PO SCH (09:00)
[2022-10-09] MEDS ORDERED: tiZANidine HCl 4 MG TAB PO PRN (09:29)
[2022-10-09] MEDS ORDERED: FLUTICASONE FUROATE NS PRN (09:29)
[2022-10-09] MEDS ORDERED: Non-Formulary Item 1 EACH (Fexofenadine Hcl [Allegra Allergy] 180 MG Tablet) PO PRN (09:29)
[2022-10-09] MEDS ORDERED: Loratadine 10 MG TAB PO PRN (09:49)
[2022-10-09] MEDS ORDERED: Fluticasone Propionate Nasal Spray 16 gm Bottle NASAL PRN (09:50)
[2022-10-09] MEDS ORDERED: CEFAZOLIN 2 GM VIAL ONE (09:52)
[2022-10-09] MEDS ORDERED: Oxymetazoline HCl 0.05% (30 ML BOT) ONE (09:53)
[2022-10-09] MEDS ORDERED: Sodium Chloride 0.9% 100 ML ONE (09:53)
[2022-10-09] MEDS ORDERED: Thrombin 5000 UNITS/5 ML VIAL ONE (10:00)
[2022-10-09] MEDS ORDERED: fentaNYL PF 100 MCG/2 ML SYRINGE ONE (10:02)
[2022-10-09] MEDS ORDERED: fentaNYL 50 mcg/mL 1 mL Vial ONE ×2 (10:02→12:19)
[2022-10-09] MEDS ORDERED: Ondansetron PF 4 MG/2 ML Vial ONE (10:23)
[2022-10-09] MEDS ORDERED: Lidocaine 1% PF 5 ML VIAL ONE (10:23)
[2022-10-09] MEDS ORDERED: NEOSTIGMINE 3 MG/3 ML SYR 3 MG/3 ML SYRINGE ONE (10:23)
[2022-10-09] MEDS ORDERED: PROPOFOL 200 MG/20 ML VIAL ONE (10:23)
[2022-10-09] MEDS ORDERED: Rocuronium Bromide 10 MG/ML (10ML VIAL) ONE (10:23)
[2022-10-09] MEDS ORDERED: GLYCOPYRROLATE/PF 0.2 MG/ML VIAL ONE (10:23)
[2022-10-09] MEDS ORDERED: Vancomycin 1 GM VIAL ONE (11:07)
[2022-10-09] MEDS ORDERED: Promethazine HCl 25 MG/ML VIAL IM PRN (11:17)
[2022-10-09] MEDS ORDERED: Ondansetron HCl/PF 4 MG/2 ML Vial IVP PRN (11:17)
[2022-10-09] MEDS ORDERED: HYDROmorphone 2 MG/ML VIAL SLOW IVP PRN (11:17)
[2022-10-09] MEDS ORDERED: Morphine Sulfate 2 MG/ML SYRINGE SLOW IVP PRN (11:17)
[2022-10-09] MEDS ORDERED: PACU-Morphine 4MG/ML VIAL SLOW IVP PRN (11:17)
[2022-10-09] MEDS ORDERED: Morphine 2 MG/ML VIAL SLOW IVP PRN (11:58)
[2022-10-09] MEDS ORDERED: hydrALAZINE 20 MG/ML VIAL SLOW IVP PRN (12:00)
[2022-10-09] MEDS ORDERED: HYDROmorphone 0.5 MG/0.5 ML SYRINGE ONE (12:15)
[2022-10-09] MEDS: Apixaban 2.5 MG TAB PO SCH (13:39)
[2022-10-09] MEDS: Sodium Chloride 0.9% 1,000 ML IV SCH (13:40)
[2022-10-09] MEDS: Aspirin 81 mg Enteric Coated Tablet PO SCH (13:40)
[2022-10-09] MEDS: Gabapentin 300 MG CAP PO SCH ×2 (15:08→20:26)
[2022-10-09] MEDS: Acetaminophen/Codeine 30-300mg Tablet PO PRN (17:02)
[2022-10-09] MEDS: CEFAZOLIN 2 GM in Sodium Chloride 0.9% 100 ML IVPB SCH (17:08)
[2022-10-09] MEDS: Atorvastatin Calcium 40 MG TAB PO SCH (20:26)
[2022-10-09] MEDS: CO Q-10 CAPSULE 100 MG PO SCH (20:26)
[2022-10-09] MEDS: Calcium Carbonate 600 MG + Vit D TAB PO SCH (20:27)
[2022-10-09] MEDS ORDERED: Gabapentin 300 MG CAP PO SCH (21:00)
[2022-10-09] MEDS ORDERED: CHOLECALCIFEROL PO SCH (21:00)
[2022-10-09] MEDS ORDERED: CALCIUM CARBONATE PO SCH (21:00)
[2022-10-09] MEDS ORDERED: [UNRECOGNIZED DRUG - OTHER] PO SCH (21:00)
[2022-10-10] MEDS: Acetaminophen/Codeine 30-300mg Tablet PO PRN ×3 (00:32→12:36)
[2022-10-10] MEDS: Sodium Chloride 0.9% 1,000 ML IV SCH ×2 (00:35→19:09)
[2022-10-10] MEDS: CEFAZOLIN 2 GM in Sodium Chloride 0.9% 100 ML IVPB SCH (02:49)
[2022-10-10] MEDS: Levothyroxine Sodium 125 MCG TAB PO SCH (06:14)
[2022-10-10] MEDS: Multivitamin W/ Minerals 1 TAB PO SCH (08:26)
[2022-10-10] MEDS: Lisinopril/Hydrochlorothiazide 10 mg/12.5 mg Tablet PO SCH (08:26)
[2022-10-10] MEDS: Gabapentin 300 MG CAP PO SCH ×3 (08:26→19:33)
[2022-10-10] MEDS: Apixaban 2.5 MG TAB PO SCH (08:26)
[2022-10-10] MEDS: Calcium Carbonate 600 MG + Vit D TAB PO SCH ×2 (08:27→19:33)
[2022-10-10] MEDS: Cholecalciferol 1,000 UNITS (25 MCG) TAB PO SCH (08:27)
[2022-10-10] MEDS: Aspirin 81 mg Enteric Coated Tablet PO SCH (08:27)
[2022-10-10] MEDS: Cyanocobalamin (Vitamin B-12) 1,000 MCG TAB PO SCH (08:27)
[2022-10-10] MEDS: CO Q-10 CAPSULE 100 MG PO SCH ×2 (08:30→19:33)
[2022-10-10] MEDS: Sulfameth/Trimethoprim DS 800-160mg TAB PO SCH ×2 (08:34→19:33)
[2022-10-10] MEDS: Bisacodyl 5 MG TAB PO PRN (08:36)
[2022-10-10] MEDS ORDERED: Levothyroxine 175 MCG TAB PO SCH (09:00)
[2022-10-10] MEDS ORDERED: Non-Formulary Item 1 EACH (Cyanocobalamin (Vitamin B-12) [Vitamin B12] 5,000 MCG Tab.Rapd PO SCH (09:00)
[2022-10-10] MEDS ORDERED: VITAMIN E PO SCH (09:00)
[2022-10-10] MEDS ORDERED: UBIDECARENONE PO SCH (09:00)
[2022-10-10] MEDS ORDERED: Non-Formulary Item 1 EACH (Cholecalciferol (Vitamin D3) [Vitamin D3] 5000 UNIT Capsule) PO SCH (09:00)
[2022-10-10] MEDS ORDERED: CRANBERRY 300 MG PO SCH (09:00)
[2022-10-10] MEDS ORDERED: [UNRECOGNIZED DRUG - OTHER] PO SCH (09:00)
[2022-10-10] MEDS ORDERED: CRANBERRY FRUIT EXTRACT 300 MG PO SCH (09:00)
[2022-10-10] MEDS ORDERED: Non-Formulary Item 1 EACH (Multivit-Min/Iron/Folic/Lutein [Centrum Silver Women] 1 TABLET PO SCH (09:00)
[2022-10-10] MEDS ORDERED: Polyethylene Glycol 3350 17 GM Packet PO SCH (11:30)
[2022-10-10] MEDS: Atorvastatin Calcium 40 MG TAB PO SCH (19:33)
[2022-10-10] MEDS: Acetaminophen 325 MG TAB PO PRN (19:35)
[2022-10-11] MEDS: Levothyroxine Sodium 125 MCG TAB PO SCH (05:57)
[2022-10-11] MEDS: Sulfameth/Trimethoprim DS 800-160mg TAB PO SCH (08:36)
[2022-10-11] MEDS: Cholecalciferol 1,000 UNITS (25 MCG) TAB PO SCH (08:36)
[2022-10-11] MEDS: Apixaban 2.5 MG TAB PO SCH (08:36)
[2022-10-11] MEDS: Gabapentin 300 MG CAP PO SCH (08:37)
[2022-10-11] MEDS: Lisinopril/Hydrochlorothiazide 10 mg/12.5 mg Tablet PO SCH (08:37)
[2022-10-11] MEDS: Calcium Carbonate 600 MG + Vit D TAB PO SCH (08:37)
[2022-10-11] MEDS: Cyanocobalamin (Vitamin B-12) 1,000 MCG TAB PO SCH (08:37)
[2022-10-11] MEDS: Aspirin 81 mg Enteric Coated Tablet PO SCH (08:37)
[2022-10-11] MEDS: Multivitamin W/ Minerals 1 TAB PO SCH (08:37)
[2022-10-11] MEDS: CO Q-10 CAPSULE 100 MG PO SCH (08:39)
[2022-10-11] MEDS: Bisacodyl 5 MG TAB PO PRN (08:43)
[2022-10-11] MEDS: Acetaminophen 325 MG TAB PO PRN (08:43)
[2022-10-11] MEDS: Sodium Chloride 0.9% 1,000 ML IV SCH (10:19)
[2022-10-11 11:47] VITALS: BP 103/66; TEMP 97.7
== END 2022-10-11 14:40 | disposition home or self-care (01) | DRG 920 ==
LOC: ERS 13:38 → ERHOLD 16:45 → SURG B 19:32 → OBSVTOIN 10-10 08:32
PROVIDERS: ADMIT Surgery; ATTEND Surgery
PROC: 0HD6XZZ Extraction of Back Skin, External Approach (ICD-10-PCS; principal; 2022-10-09)
DX: T81.31XA Disruption of external operation (surgical) wound, not elsewhere classified, initial encounter (principal); I74.3 Embolism and thrombosis of arteries of the lower extremities; N17.9 Acute kidney failure, unspecified; Y83.8 Other surgical procedures as the cause of abnormal reaction of the patient, or of later complication, without mention of misadventure at the time of the procedure; Z86.711 Personal history of pulmonary embolism; Z79.82 Long term (current) use of aspirin; Z79.01 Long term (current) use of anticoagulants; N18.30 Chronic kidney disease, stage 3 unspecified
CPT/HCPCS: 36415; 80053; 85025; 85610; 85652; 85730; 86140; 93005; 93010; 93970; 96365; 96375; 96376; G0378; J0360; J1170; J2405; J2704; J3010; J3370; J3490; J7050